=== PATIENT | female | born 1980 | race American Indian/Alaskan Native ===

== ENCOUNTER 2018-05-25 23:46 | Outpatient (CLI) | payer BC ==
[2018-05-26] MEDS ORDERED: LACTATED RINGERS 1,000 ML ONE (00:01)
[2018-05-26] MEDS ORDERED: LACTATED RINGERS 1,000 ML IV ONE (00:22)
[2018-05-26] MEDS ORDERED: LACTATED RINGERS 1,000 ML IV SCH (01:00)
[2018-05-26 02:15] LABS: Bacteria,Urine 1+ /HPF (Negative); Bilirubin,Urine NEG (Negative); Blood,Urine NEG (Negative); Color,Urine Amber (Yellow); Mucus,Urine 2+ /HPF; Protein,Urine <15 mg/dL mg/dL (Negative)
[2018-05-26] MEDS ORDERED: BRETHINE SUB-Q ONE (02:31)
[2018-05-26 02:37] VITALS: BP 121/60
== END 2018-05-26 04:00 | disposition home or self-care (01) ==
LOC: TRG 23:46 → LD 23:48 → TRG 05-26 04:00
PROVIDERS: ATTEND Obstetrics & Gynecology Gynecology
DX: O47.03 False labor before 37 completed weeks of gestation, third trimester (principal); O99.513 Diseases of the respiratory system complicating pregnancy, third trimester; J45.909 Unspecified asthma, uncomplicated; Z3A.28 28 weeks gestation of pregnancy
CPT/HCPCS: 59025; 81001; 96360; 96361; 96372; J3105; J7120